=== PATIENT | female | born 1970 | race Caucasian/White ===

== ENCOUNTER 2018-12-31 10:56 | Inpatient (IN) | payer OTHER ==
[~2018-12-31] VITALS: Ht 170.2 cm; Wt 84.1 kg
[~2018-12-31 10:56] MED LIST: CARISOPRODOL 3350 MG PO; FLEXERIL PO; LORTAB 5 MG/5001 TAB PO; MEDROL DOSPAK21 TAB PO; NOHOMEMEDICATIONS; NORCO 5-325 TA1 EACH PO; RELAFEN500 MG PO
[2018-12-31 11:06] VITALS: BP 110/73
[2018-12-31 11:40] LABS: ABSOLUTE NEUTROPHILS 8.1 thou/uL (1.4-8.2); BASOPHILS 0.4 % (0.0-2.0); EOSINOPHILS 0.1 % (0.0-3.0); HEMATOCRIT 36.1 % (37.0-47.0); HEMOGLOBIN 12.3 gm/dL (12.0-15.0); LYMPHOCYTES 6.7 % (24.0-44.0); MCH 30.8 pg (26.0-34.0); MCV 90.5 fL (80.0-100.0); PLATELET COUNT 237 thou/uL (150-400); POLYS 83.8 % (36.0-66.0); RBC 3.99 mil/uL (4.20-5.00); RDW 12.8 % (10.5-14.5); WBC 9.7 thou/uL (4.0-11.0)
[2018-12-31 11:46] LABS: CALCIUM 9.5 mg/dL (8.5-10.1); CREATININE 0.9 mg/dL (0.6-1.0); POTASSIUM 3.4 mmol/L (3.5-5.1)
[2018-12-31 12:22] LABS: URINE BILIRUBIN NEGATIVE (Negative); URINE BLOOD 2+ (Negative); URINE CLARITY CLEAR; URINE COLOR YELLOW; URINE GLUCOSE-RANDOM* NEGATIVE (Negative); URINE KETONES NEGATIVE (Negative); URINE PROTEIN (DIPSTICK) TRACE (Negative); URINE UROBILINOGEN 0.2 E.U./dl (0.2-1.0)
[2018-12-31 12:23] LABS: URINE LEUKOCYTES-REFLEX 2+ (Negative); URINE NITRITE-REFLEX POSITIVE (Negative)
[2018-12-31 12:31] LABS: SQUAMOUS 4-10 Moderate /LPF (0-3)
[2018-12-31 12:32] LABS: BACTERIA-REFLEX >30 Many /HPF (None Seen); CASTS None Seen /LPF (None Seen); CRYSTALS None Seen /LPF (None Seen); URINE RBC 0-2 Rare /HPF (0-2); URINE WBC-REFLEX 6-15 Few /HPF (0-5)
[2018-12-31 16:00] VITALS: BP 104/67
[2018-12-31 16:30] LABS: AMP/METHAMP Negative (Negative); BARBITURATES Negative (Negative); BENZODIAZEPINES Negative (Negative); COCAINE Negative (Negative); METHADONE Negative (Negative); OPIATES Negative (Negative); PCP Negative (Negative)
--- NOTE | 2018-12-31 19:46 | NUR ---
Admitted the patient from ER, transferred to bed safely. A+Ox2-3, very drowsy but rousable. On room air. With SL at R AC- started NS at 80cc/hr, one time dose as prescribed. Pt no diet orders upon arriving- called Dr Cortez informed and said pt can have regular diet- ordered. With nausea and vomiting noted- Dr Cortez informed- Pt can have Zofran q6 PRN for nausea and vomiting- ordered. Vital signs stable. Pt admitted with hyperglycemia- asked Dr Cortez if she wanted pt to be on blood sugar monitoring- to start CBG monitoring ACHS but not insulin coverage to be given. 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 Dr Cortez called up to have EKG done to patient- called Cardio staff- night club manager informed as well that pt is due for EKG; Tylenol Extra strength prescribed for pain as well. To continue monitoring pt. Falls bundle in place. Pt had Ultrasound done at bedside upon admission.
[2018-12-31 19:54] VITALS: BP 110/61
[2019-01-01 04:10] VITALS: BP 119/72
--- NOTE | 2019-01-01 05:45 | NUR ---
Assumed care of pt @1900. pt drowsy and weak for the first half of the shiftbut slowly improved over the night. Pt c/o pain, n/v and was medicated per emar. pt stated that; morphine, fentanyl, oxycodone and hydrocodone are meds that she can't take, that they make her very sick. pt stated that the morphine that was given to her at the ER made her sick. PLASTIC TILE LAYER was called and tramadol po was ordered for 4x doses. pt gets up with 1 assist to the bsc. fall prec in place. following POC
[2019-01-01 08:33] VITALS: BP 101/63
--- NOTE | 2019-01-01 13:24 | NUR ---
Received awake on bed. Due medications given as prescribed. A+O, pt more awake compared upon admission. On room air. Vital signs stable. Complained of pain, due PRN pain meds given as prescribed. On standby assist, able to walk to bathroom with gaitbelt. On blood sugar monitoring-taken and recorded accordingly, no insulin coverage prescribed. With SL at R AC-intact and flushing well. Visited by relatives today. No complaints of nausea or vomiting upon assessment this AM.
[2019-01-01 14:53] VITALS: BP 124/79
[2019-01-01 19:25] VITALS: BP 108/74
--- NOTE | 2019-01-02 04:06 | NUR ---
ASSUMED CARE OF PT AT 1900HRS. PT AOX4 AND LETS NEEDS BE KNOWN. FALL PRECAUTION IN PLACE. VSS AND NO S/S OF ACUTE DISTRESS. PT WAS ABLE TO GET COMFORTABLE AND SLEEP PART OF THE SHIFT. WILL CONTINUE TO MONITOR.
[2019-01-02 04:25] VITALS: BP 101/68
[2019-01-02 08:04] VITALS: BP 108/75
[2019-01-02 10:03] LABS: ABSOLUTE NEUTROPHILS 6.3 thou/uL (1.4-8.2); BASOPHILS 0.7 % (0.0-2.0); EOSINOPHILS 0.5 % (0.0-3.0); HEMOGLOBIN 12.2 gm/dL (12.0-15.0); LYMPHOCYTES 12.6 % (24.0-44.0); MCH 31.3 pg (26.0-34.0); MCHC 34.8 g/dL (28.0-37.0); MCV 89.9 fL (80.0-100.0); PLATELET COUNT 260 thou/uL (150-400); POLYS 77.2 % (36.0-66.0); RDW 12.3 % (10.5-14.5); WBC 8.2 thou/uL (4.0-11.0)
[2019-01-02 10:19] LABS: ALBUMIN 3.2 g/dL (3.4-5.0); CALCIUM 9.3 mg/dL (8.5-10.1); CREATININE 0.8 mg/dL (0.6-1.0); MAGNESIUM 2.3 mg/dL (1.8-2.4); POTASSIUM 3.4 mmol/L (3.5-5.1); TOTAL BILIRUBIN 0.4 mg/dL (<0.1-1.0); TOTAL PROTEIN 7.4 g/dL (6.4-8.2)
[2019-01-02 12:20] VITALS: BP 111/79
[2019-01-02 16:09] VITALS: BP 106/75
--- NOTE | 2019-01-02 19:29 | NUR ---
ASSUMED CARE 0700. ALERT X4 FROM HOME WITH FAMILY. PAIN MANAGED WITH MEDS, REQUIRES ASSISTANCE TO COMMODE DUE TO WEAKNESS. FALL PRECAUTIONS IN PLACE. CALLS APPROPRIATELY.
[2019-01-02 19:42] VITALS: BP 116/76
--- NOTE | 2019-01-03 04:13 | NUR ---
Pt. rested quietly at intervals during the night when checked on during frequent rounds. She did c/o lower back pain and was given po pain meds (see emar) with some relief noted. Pt. c/o nausea and prn zofran given (see emar) with relief. Assisted to the bathroom with assistance of one. Bed alarm is on.
[2019-01-03 05:29] LABS: ABSOLUTE NEUTROPHILS 4.1 thou/uL (1.4-8.2); BASOPHILS 0.5 % (0.0-2.0); HEMATOCRIT 33.8 % (37.0-47.0); HEMOGLOBIN 11.6 gm/dL (12.0-15.0); LYMPHOCYTES 25.8 % (24.0-44.0); MCH 30.8 pg (26.0-34.0); MCHC 34.3 g/dL (28.0-37.0); MCV 89.8 fL (80.0-100.0); MONOCYTES 9.3 % (1.0-8.0); PLATELET COUNT 284 thou/uL (150-400); POLYS 63.4 % (36.0-66.0); RBC 3.77 mil/uL (4.20-5.00); RDW 12.4 % (10.5-14.5); WBC 6.5 thou/uL (4.0-11.0)
[2019-01-03 05:50] LABS: ALBUMIN 2.8 g/dL (3.4-5.0); CALCIUM 8.8 mg/dL (8.5-10.1); CREATININE 0.8 mg/dL (0.6-1.0); MAGNESIUM 2.3 mg/dL (1.8-2.4); PHOSPHORUS 4.7 mg/dL (2.5-4.9); POTASSIUM 3.9 mmol/L (3.5-5.1); TOTAL BILIRUBIN 0.3 mg/dL (<0.1-1.0)
[2019-01-03 07:30] VITALS: BP 114/72
--- NOTE | 2019-01-03 08:53 | EKG ---
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
--- NOTE | 2019-01-03 08:56 | EKG ---
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: Vipin ADHIKARI : 1970 Requested By: Lisa Cortez Order Number: [id number] MD: Theron Butler Measurements Intervals [place] Rate: 66 P: 10 WI: 110 QRS: 10 QRSD: 98 T: 35 QT: 432 QTc: 453 Interpretive Statements Sinus rhythm Borderline short WI interval Borderline T abnormalities, anterior leads No previous ECG available for comparison Electronically Signed On 01-03-2019 8:56:20 CDT by Theron Butler [email or web address] <ELECTRONICALLY SIGNED> By: Theron Butler MD, [facility] 01/03/19 0856 12 12 Theron Butler MD, FACC /EPI
--- NOTE | 2019-01-03 16:26 | NUR ---
PT ADMITTED RELATED TO PERSISTENT WEAKNESS AFTER UTI; DEHYDRATION. CM REVIEWED CHART AND SPOKE WITH CARE TEAM. CM MET WITH PT AT BEDSIDE THIS DAY. PT IS A&O X4. CM ROLE INTRODCUED. 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 PT INDICATED NO DME OR HH HX. PT INDICATED SHE PLANS TO DC HOME ONCE MEDICALLY STABLE. CM TO FOLLOW INDICATED WITH DC PLANNING.
[2019-01-03] MEDS ORDERED: ACETAMINOPHEN325 M1 PO (17:01)
[2019-01-03] MEDS ORDERED: PEPCID20 MG PO (17:02)
[2019-01-03] MEDS ORDERED: MIRALAX17 GM PO (17:02)
[2019-01-03 17:03] VITALS: BP 112/74
[2019-01-03] MEDS ORDERED: KEFLEX500 M1 PO (17:03)
[2019-01-03 17:21] VITALS: BP 112/74
--- NOTE | 2019-01-03 19:35 | NUR ---
PATIENT DC HOME WITH SELF CARE. PATIENT EDUCATED ON MEDICATION SCRIPTS AND TO NOT RETURN TO WORK UNTIL AFTER SHE SEE PCP. IV REMOVED
--- NOTE | 2019-01-11 10:13 | H ---
[facility] [place] [address] HISTORY AND PHYSICAL Name: YUNIER CHAVEZ Room #: 463-P [facility] IN M.R.#: [id number] Admission: 12/31/18 Attend Phys: Lisa Cortez MD Discharge: 01/03/19 Date of : 66 Report #: [id number] THIS REPORT FOR: //name// CC: Beba Cortez DATE OF SERVICE: 12/31/2018 PRIMARY CARE PHYSICIAN: Dr. Beba García, [place], [place]. CHIEF COMPLAINT: Dysuria, polyuria, frequency, urgency of urination and back pain all started 48 hours ago. HISTORY OF PRESENT ILLNESS: The patient is a very pleasant 48-year-old overweight female who informs me that she has been recently started on phentermine by her primary care physician for weight problem; however, her BMI is only 27.4. The patient informs me that it was started a week ago for weight loss program last Thursday and she started shaking really bad by Thursday evening and she ate something and rested, however, Thursday evening, she started having shakes again and leg cramping and it was so bad that she went to [facility] where she had a blood work and a CT scan of the chest was done as well and the patient was told that she did not have anything to be concerned about and was advised to follow up with the primary care physician and discharged from the Emergency Room. The patient took sick leave yesterday and stayed home and rested, however, started having dysuria, frequency, urgency of urination with the back pain. The patient informs me that the back pain is so bad that she was feeling terrible and she could not continue working today because of these symptoms with really dry mouth and with weakness and feeling terrible. The patient informs me that did not have any fever, shaking chills or sweats, but she did have just shaking in the legs. She felt weak in both the legs and she felt like her legs were very heavy as if she is having difficulty walking with these heavy legs and weakness, but that all resolved after she rested yesterday all day and she denies any syncopal episodes, fall or trauma. Denies any nausea, vomiting or diarrhea associated with all the issues going on with dry mouth and dysuria and polyuria and back pain. The patient denies any hematuria. Review of systems also negative for any cough or sputum production or chest pain, palpitations, orthopnea, paroxysmal nocturnal dyspnea or leg edema. PAST MEDICAL HISTORY: Significant for just seasonal allergies and overweight and no other health problems. PAST SURGICAL HISTORY: The patient has had x 2 and otherwise no other surgeries. ALLERGIES: The patient has no known drug allergies. [facility] [address] [place] [address] HISTORY AND PHYSICAL Name: YUNIER CHAVEZ Room #: 463-P DIS IN M.R.#: [id number] Admission: 12/31/18 Attend Phys: Lisa Cortez MD Discharge: 01/03/19 Date of : 66 Report #: [id number] CURRENT MEDICATIONS: Multivitamin, phentermine, which she has not taken for past 3 days and it was started a week ago. PERSONAL AND SOCIAL HISTORY: The patient is a lifetime nontobacco user and does not drink alcohol, very-very occasionally if she will have a glass of wine, but not on a daily, weekly or monthly basis. FAMILY HISTORY: Mother with dementia and she was in a fpc and had pneumonia. Father is alive at 85 years old and well and healthy and has had DVT and is on blood thinners for his blood clot problems. REVIEW OF SYSTEMS: Ten point review of system was done. Please see HPI above. PHYSICAL EXAMINATION: VITAL SIGNS: Temperature 37.9, heart rate 109, respirations 24, blood pressure 110/73, pulse oximeter 98% on room air. GENERAL: Alert and oriented to time, place and person, very pleasant 48-year-old female who is visibly uncomfortable with dry mouth and back pain, but informs me overall feeling better. No acute cardiopulmonary distress. HEENT: Normocephalic, atraumatic. Pupils are equally round and reactive to light, 3 mm bilaterally symmetrical and extraocular muscle movement intact. Conjunctivae clear. Sclerae nonicteric. Oropharynx clear. Mucous membranes are dry, but no lesions noted. Oropharynx is clear. NECK: Supple, no JVD, no lymphadenopathy. HEART: S1, S2, regular. No murmur, no S3, no S4. LUNGS: Clear to auscultation bilaterally without any crackles or wheezes and bilaterally symmetrical chest expansion noted. No chest wall tenderness noted. ABDOMEN: Soft, mild suprapubic discomfort noted. Otherwise, no organomegaly and no abnormality in the abdominal exam. The patient has no CVA tenderness bilaterally. The patient does have lower back discomfort, which is non-reproducible tenderness, just a discomfort that she feels. EXTREMITIES: Without any edema or rash. NEUROLOGIC: Completely nonfocal. LABORATORY DATA: The patient had a lactic acid of 2.5 when she presented at 11:30 and is now 1.9. Urinalysis with pH 7.0, specific gravity 1.010, 2+ blood, positive for nitrite, 2+ leukocyte esterase, 6-15 wbc's per high power field and greater than 30 bacteria and 4-10 squamous epithelial cells per high power field noted. Hematology indicates WBC normal at 9.7, hemoglobin 12.3, hematocrit 36.1 and platelet count 237 with a differential significant for segmented neutrophils elevated at 83.8%. Chemistries indicate sodium 139, potassium low at 3.4, chloride 102, bicarbonate [facility] [address] [place] [address] HISTORY AND PHYSICAL Name: YUNIER CHAVEZ Room #: 463-P [facility] IN [facility].#: [id number] Admission: 12/31/18 Attend Phys: Lisa Cortez MD Discharge: 01/03/19 Date of : 66 Report #: [id number], anion gap 12, BUN 17, creatinine 0.9. Estimated GFR 66, glucose 108, calcium 9.5. TSH 2.321. Influenza A and B negative. Blood cultures were sent from the Emergency Room. Electrocardiogram indicates sinus tachycardia with multiple PVCs, but otherwise unremarkable and chest x-ray indicates no acute abnormalities and completely unremarkable ASSESSMENT AND PLAN: 1. Urinary tract infection and pyelonephritis. 2. Sepsis. 3. Overweight with BMI 27.9. 4. Full code. 5. DVT prophylaxis with Lovenox and GI prophylaxis with Pepcid. PLAN: The patient is being admitted to Med/Surg unit and a normal saline fluid bolus has been given in the Emergency Room. The patient has received 2000 mL of fluid bolus and lactic acid has normalized. I would continue normal saline at 80 mL an hour, and for UTI and pyelonephritis, continue Rocephin until blood cultures and urine cultures are back. Ultrasound of kidneys to make sure the patient does not have any focus of infection or any abscess or abnormalities noted in renal parenchyma. The patient does not have a history of any nephrolithiasis. We will go ahead and do antibiotic fluids for resuscitation and for UTI and pyelonephritis and pain management with Tylenol. Plan of care discussed with the patient. Hypokalemia, potassium will be replaced and we will get medical records from Emergency Room on [facility] as patient had CT angiogram of the chest done for PE protocol as her D-dimer was elevated. We will go ahead and send all the records to her primary care physician Dr. Beba García and this plan of care was discussed with the patient as well as Emergency Room provider. <ELECTRONICALLY SIGNED> By: Lias Cortez MD 01/11/19 1013 1632 1654 Lisa Cortez MD /nt
== END 2019-01-03 18:30 | disposition home or self-care (01) | DRG 872 ==
LOC: ER 10:56 → 4W 16:39
PROVIDERS: Emergency Medicine; ADMIT Internal Medicine
DX: A41.9 Sepsis, unspecified organism (principal); N12 Tubulo-interstitial nephritis, not specified as acute or chronic; E86.0 Dehydration; E66.3 Overweight; E16.2 Hypoglycemia, unspecified; M54.9 Dorsalgia, unspecified; Z79.899 Other long term (current) drug therapy; Z68.27 Body mass index [BMI] 27.0-27.9, adult; Z98.891 History of uterine scar from previous surgery
CPT/HCPCS: 10047